=== PATIENT | male | born 1990 | race American Indian/Alaskan Native ===

== ENCOUNTER 2019-05-24 18:24 | Emergency (ER) | payer SELFPAY ==
[2019-05-24 18:44] VITALS: BP 177/110
[2019-05-24] MEDS ORDERED: IBUPROFEN 600 MG TAB PO ONE (18:50)
--- NOTE | 2019-05-24 18:50 | Emergency Department Report ---
ED ENT HPI - General Chief complaint: Dental/Oral Stated complaint: LFT SIDE ABCESS/TOOTHACHE PAIN Time Seen by Provider: 05/24/19 18:36 Source: patient Mode of arrival: Ambulatory Limitations: No Limitations - History of Present Illness Initial comments: This is a 28-year-old male nontoxic well in appearance with no signs of distress presents to the ED with complaint of chronic toothache. Patient stated has some left sided jaw swelling that started today. Denies following up with a dentist. Denies any fever, chills, headache, nausea, vomiting, chest pain or SOB. Denies any other complaints. Denies any allergies. MD complaint: tooth pain -: week(s) Location: tooth # 1 - pain here Severity: mild Severity scale (0 -10): 8 Quality: aching Consistency: constant Improves with: none Worsens with: none Context- Dental: history of dental caries, poor dental care Associated Symptoms: gum swelling, toothache. denies: fever, cough, pain with swallowing, sore throat, tinnitus, hearing loss, discharge from ear, rhinorrhea - Related Data Previous Rx's Medication Instructions Recorded Last Taken Type Amoxicillin [Trimox CAP] 500 mg PO Q8H 10 Days #30 capsule 05/17/18 Unknown Rx Chlorhexidine Mouthwash [Peridex] 15 ml MM BID #1 bottle 05/17/18 Unknown Rx traMADoL [Ultram] 50 mg PO Q6HR PRN #12 tablet 05/17/18 Unknown Rx Acetaminophen/Codeine [Tylenol 1 tab PO Q6H PRN #12 tab 05/24/19 Unknown Rx /Codeine # 3 tab] Chlorhexidine Mouthwash [Peridex] 15 ml MM BID #1 bottle 05/24/19 Unknown Rx Clindamycin [Clindamycin CAP] 300 mg PO Q6H #28 capsule 05/24/19 Unknown Rx Allergies Allergy/AdvReac Type Severity Reaction Status Date / Time No Known Allergies Allergy Verified 05/17/18 20:27 ED Dental HPI - General Chief complaint: Dental/Oral Stated complaint: LFT SIDE ABCESS/TOOTHACHE PAIN Time Seen by Provider: 05/24/19 18:36 Source: patient Mode of arrival: Ambulatory Limitations: No Limitations - Related Data Previous Rx's Medication Instructions Recorded Last Taken Type Amoxicillin [Trimox CAP] 500 mg PO Q8H 10 Days #30 capsule 05/17/18 Unknown Rx Chlorhexidine Mouthwash [Peridex] 15 ml MM BID #1 bottle 05/17/18 Unknown Rx traMADoL [Ultram] 50 mg PO Q6HR PRN #12 tablet 05/17/18 Unknown Rx Acetaminophen/Codeine [Tylenol 1 tab PO Q6H PRN #12 tab 05/24/19 Unknown Rx /Codeine # 3 tab] Chlorhexidine Mouthwash [Peridex] 15 ml MM BID #1 bottle 05/24/19 Unknown Rx Clindamycin [Clindamycin CAP] 300 mg PO Q6H #28 capsule 05/24/19 Unknown Rx Allergies Allergy/AdvReac Type Severity Reaction Status Date / Time No Known Allergies Allergy Verified 05/17/18 20:27 ED Review of Systems ROS: Stated complaint: LFT SIDE ABCESS/TOOTHACHE PAIN Other details as noted in HPI Constitutional: denies: chills, fever Eyes: denies: eye pain, eye discharge, vision change ENT: dental pain. denies: ear pain, throat pain Respiratory: denies: cough, shortness of breath, wheezing Cardiovascular: denies: chest pain, palpitations Endocrine: no symptoms reported Gastrointestinal: denies: abdominal pain, nausea, diarrhea Genitourinary: denies: urgency, dysuria Musculoskeletal: denies: back pain, joint swelling, arthralgia Skin: denies: rash, lesions Neurological: denies: headache, weakness, paresthesias Psychiatric: denies: anxiety, depression Hematological/Lymphatic: denies: easy bleeding, easy bruising ED Past Medical Hx - Past Medical History Previous Medical History?: No - Surgical History Past Surgical History?: No - Social History Smoking Status: Former Smoker Substance Use Type: None - Medications Home Medications: Home Medications Medication Instructions Recorded Confirmed Last Taken Type Amoxicillin [Trimox CAP] 500 mg PO Q8H 10 Days #30 capsule 05/17/18 Unknown Rx Chlorhexidine Mouthwash [Peridex] 15 ml MM BID #1 bottle 05/17/18 Unknown Rx traMADoL [Ultram] 50 mg PO Q6HR PRN #12 tablet 05/17/18 Unknown Rx Acetaminophen/Codeine [Tylenol 1 tab PO Q6H PRN #12 tab 05/24/19 Unknown Rx /Codeine # 3 tab] Chlorhexidine Mouthwash [Peridex] 15 ml MM BID #1 bottle 05/24/19 Unknown Rx Clindamycin [Clindamycin CAP] 300 mg PO Q6H #28 capsule 05/24/19 Unknown Rx ED Physical Exam - General Limitations: No Limitations General appearance: alert, in no apparent distress - Head Head exam: Present: atraumatic, normocephalic - Expanded ENT Exam Expanded Ear exam: Present: normal external inspection Mouth exam: Present: normal external inspection. Absent: drooling, trismus, muffled voice Teeth exam: Present: dental caries, fractured tooth #, dental tenderness #, gingival enlargement, other (slight facial swelling. no pus or drainge. no induration of flutance ntoed.) Throat exam: Positive: normal inspection, other (uvula midline). Negative: tonsillar erythema, tonsillar exudate, R peritonsillar mass, L peritonsillar mass - Neck Neck exam: Present: normal inspection, full ROM. Absent: tenderness, meningismus, lymphadenopathy - Extremities Exam Extremities exam: Present: full ROM - Back Exam Back exam: Present: full ROM - Neurological Exam Neurological exam: Present: alert, oriented X3, normal gait - Psychiatric Psychiatric exam: Present: normal affect, normal mood - Skin Skin exam: Present: warm, dry, intact, normal color. Absent: rash ED Course Vital Signs 05/24/19 18:41 Temperature 99.3 F Pulse Rate 98 H Respiratory 18 Rate Blood Pressure 177/110 O2 Sat by Pulse 100 Oximetry - Reevaluation(s) Reevaluation #1: 05/24/19 18:56 Patient is speaking in full sentences with no signs of distress noted. ED Medical Decision Making - Medical Decision Making 28-year-old male that presents with dental caries and gingivitis. Pt received Clinda and Motrin. No dental abscess noted. Patient was instructed to Follow- up with a dentist doctor in 2 days or if symptoms worsen and continue return to emergency room as soon as possible. At time of discharge, the patient does not seem toxic or ill in appearance. No acute signs of distress noted. Patient agrees to discharge treatment plan of care. No further questions noted by the patient. Critical care attestation.: If time is entered above; I have spent that time in minutes in the direct care of this critically ill patient, excluding procedure time. ED Disposition Clinical Impression: Dental caries, Gingivitis Disposition: TO HOME OR SELFCARE Is pt being admited?: No Does the pt Need Aspirin: No Condition: Stable Instructions: Dental Caries (ED), Gingivitis (ED), Acetaminophen/Codeine (By mouth) Additional Instructions: Follow-up with a dentist doctor in 2 days or if symptoms worsen and continue return to emergency room as soon as possible. Prescriptions: Clindamycin [Clindamycin CAP] 300 mg PO Q6H #28 capsule Chlorhexidine Mouthwash [Peridex] 15 ml MM BID #1 bottle Acetaminophen/Codeine [Tylenol /Codeine # 3 tab] 1 tab PO Q6H PRN #12 tab PRN Reason: Pain , Severe (7-10) Referrals: PRIMARY CARE, [Referring] - 3-5 Days MARIEL KNIGHT MD [Staff Physician] - 3-5 Days [facility] [Outside] - [place] Forms: Work/School Release Form(ED)
[2019-05-24] MEDS ORDERED: CLINDAMYCIN 300 MG CAP PO ONE (18:51)
== END 2019-05-24 19:20 | disposition home or self-care (01) ==
LOC: ED 18:24
DX: K02.9 Dental caries, unspecified (principal); K05.10 Chronic gingivitis, plaque induced; Z87.891 Personal history of nicotine dependence; Z79.899 Other long term (current) drug therapy